=== PATIENT | female | born 1965 | race Caucasian/White ===

== ENCOUNTER 2018-03-21 16:43 | Emergency (ER) | payer MEDICAID ==
--- NOTE | 2018-03-21 17:00 | C.PDOC ---
History Of Present Illness 52 year old female presents to the ER complaining of generalized bites with mild itching to her body. Patient reports she has been living in the same house for a long time and never had a problem until the last couple of weeks that she started noticing bed bugs. She states she is concerned because she does not how to manage the bites. She denies any fever, chills, or other associated symptoms. Time Seen by Provider: 03/21/18 16:50 History Per: Patient History/Exam Limitations: no limitations Onset/Duration Of Symptoms: Days Current Symptoms Are (Timing): Still Present Severity: Mild Past Medical History Reviewed: Historical Data, Nursing Documentation, Vital Signs Vital Signs: Last Vital Signs Temp 98.1 F 03/21/18 17:00 Pulse 59 L 03/21/18 17:00 Resp 18 03/21/18 17:00 BP Pulse Ox 96 03/21/18 19:35 - Medical History PMH: No Chronic Diseases Denies: Diabetes, Hepatitis, HIV, HTN, Seizures, Sexually Transmitted Disease Surgical History: No Surg Hx Family History: States: No Known Family Hx - Social History Hx Tobacco Use: No Hx Alcohol Use: No Hx Substance Use: No - Immunization History Hx Tetanus Toxoid Vaccination: No Hx Influenza Vaccination: No Hx Pneumococcal Vaccination: No Review Of Systems Except As Marked, All Systems Reviewed And Found Negative. Constitutional: Negative for: Fever, Chills Skin: Positive for: Other (Mild itching) Physical Exam - Physical Exam Appears: Non-toxic, No Acute Distress Skin: Other (Multiple insect bites to arms and legs bilaterally, no induration, no warmth, no infection) Head: Atraumatic, Normacephalic Eye(s): bilateral: Normal Inspection Oral Mucosa: Moist Neck: Supple Neurological/Psych: Oriented x3 Gait: Steady ED Course And Treatment O2 Sat by Pulse Oximetry: 96 (RA) Pulse Ox Interpretation: Normal Medical Decision Making Medical Decision Making: Impression: Infestation by bedbugs On assessment, patient has multiple insect bites to arms and legs. Patient instructed on proper cleaning at home and advised to contact an salesperson burial plots. Disposition Counseled Patient/Family Regarding: Diagnosis, Need For Followup - Disposition Disposition: HOME/ ROUTINE Disposition Time: 16:59 Condition: STABLE Instructions: Bedbugs Forms: [employer] ([place]) - POA Present On Arrival: None - Clinical Impression Clinical Impression: Infestation by bed bug - Scribe Statement The provider has reviewed the documentation as recorded by the Scribe Ria Abbott All medical record entries made by the Navinibclyde were at my direction and personally dictated by me. I have reviewed the chart and agree that the record accurately reflects my personal performance of the history, physical exam, medical decision making, and the department course for this patient. I have also personally directed, reviewed, and agree with the discharge instructions and disposition.
[2018-03-21 17:10] VITALS: PULSE 59; RESP 18; TEMP 98.1; O2SAT 96
== END 2018-03-21 17:13 | disposition home or self-care (01) ==
LOC: C.ER 16:43
DX: S40.861A Insect bite (nonvenomous) of right upper arm, initial encounter (principal); S40.862A Insect bite (nonvenomous) of left upper arm, initial encounter; S80.861A Insect bite (nonvenomous), right lower leg, initial encounter; S80.862A Insect bite (nonvenomous), left lower leg, initial encounter; W57.XXXA Bitten or stung by nonvenomous insect and other nonvenomous arthropods, initial encounter